=== PATIENT | female | born 1950 | race Native Hawaiian/Other Pacific Islander ===

== ENCOUNTER 2016-09-02 10:07 | Outpatient (CLI) | payer OTHER ==
[~2016-09-02 10:07] MED LIST: ACET5TAB36 PO; ENTERIC COATED325 MG OR; FURO40TA93 PO; GLIP10TA66 PO; POTA20TA4 PO
[2016-09-02 10:30] LABS: PLATELET COUNT 289 K/uL (152-353)
== END 2016-09-02 11:15 | disposition home or self-care (01) ==
LOC: LABW 10:07
PROVIDERS: Internal Medicine
DX: E11.9 Type 2 diabetes mellitus without complications (principal)
CPT/HCPCS: 36415; 80053; 80061; 81000; 82043; 82570; 83036; 84439; 84443; 85027

== ENCOUNTER 2016-09-14 14:24 | Outpatient (CLI) | payer OTHER | END 2016-09-14 16:15 | disposition home or self-care (01) | LOC: MAMMO 14:24 | DX: Z12.31 Encounter for screening mammogram for malignant neoplasm of breast (principal); Z85.3 Personal history of malignant neoplasm of breast | CPT/HCPCS: G0202-TC ==

== ENCOUNTER 2016-10-06 12:44 | Outpatient (CLI) | payer OTHER | END 2016-10-06 14:00 | disposition home or self-care (01) | LOC: MAMMO 12:44 | DX: R92.8 Other abnormal and inconclusive findings on diagnostic imaging of breast (principal) | CPT/HCPCS: G0206-TC ==

== ENCOUNTER 2017-02-26 13:23 | Outpatient (CLI) | payer OTHER ==
[2017-02-26 14:13] LABS: POTASSIUM 3.9 mmol/L (3.6-5.2)
== END 2017-02-26 14:25 | disposition home or self-care (01) ==
LOC: LABW 13:23
PROVIDERS: Internal Medicine
DX: E11.9 Type 2 diabetes mellitus without complications (principal)
CPT/HCPCS: 36415; 80053; 83036

== ENCOUNTER 2017-06-09 10:14 | Outpatient (CLI) | payer OTHER | END 2017-06-09 19:21 | disposition home or self-care (01) | LOC: US 10:14 | DX: R11.0 Nausea (principal) ==

== ENCOUNTER 2017-06-11 09:42 | Outpatient (CLI) | payer OTHER | END 2017-06-11 19:38 | disposition home or self-care (01) | LOC: CT 09:42 | DX: N85.8 Other specified noninflammatory disorders of uterus (principal); D25.9 Leiomyoma of uterus, unspecified | CPT/HCPCS: 36415; 82565; 84520; Q9963 ==

== ENCOUNTER 2017-06-17 12:52 | Outpatient (CLI) | payer OTHER | END 2017-06-17 23:59 | disposition home or self-care (01) | LOC: NM 12:52 | DX: K80.20 Calculus of gallbladder without cholecystitis without obstruction (principal) | CPT/HCPCS: A9537 ==

== ENCOUNTER 2017-12-16 10:23 | Outpatient (CLI) | payer OTHER ==
[2017-12-16 10:49] LABS: PLATELET COUNT 263 K/uL (152-353)
[2017-12-16 11:25] LABS: POTASSIUM 4.1 mmol/L (3.6-5.2)
== END 2017-12-16 19:31 | disposition home or self-care (01) ==
LOC: LABW 10:23
PROVIDERS: Internal Medicine
DX: E11.9 Type 2 diabetes mellitus without complications (principal); Z00.00 Encounter for general adult medical examination without abnormal findings
CPT/HCPCS: 36415; 80053; 80061; 81000; 82043; 82570; 83036; 84439; 84443; 85027

== ENCOUNTER 2018-01-11 07:57 | Outpatient (CLI) | payer OTHER ==
[~2018-01-11] VITALS: Ht 154.9 cm; Wt 129.3 kg
== END 2018-01-11 22:23 | disposition home or self-care (01) ==
LOC: NM 07:57
DX: R07.89 Other chest pain (principal); R06.09 Other forms of dyspnea
CPT/HCPCS: A9500; J2785

== ENCOUNTER 2018-01-12 09:43 | Outpatient (CLI) | payer OTHER | END 2018-01-12 19:37 | disposition home or self-care (01) | LOC: MAMMO 09:43 | DX: N28.1 Cyst of kidney, acquired (principal); Z85.3 Personal history of malignant neoplasm of breast ==

== ENCOUNTER 2018-12-12 10:56 | Outpatient (CLI) | payer OTHER ==
[2018-12-12 11:20] LABS: PLATELET COUNT 294 K/uL (152-353)
[2018-12-12 11:37] LABS: POTASSIUM 4.6 mmol/L (3.6-5.2)
== END 2018-12-12 16:00 | disposition home or self-care (01) ==
LOC: LABW 10:56
PROVIDERS: Physician Assistant
DX: E78.49 Other hyperlipidemia (principal); E66.01 Morbid (severe) obesity due to excess calories; I10 Essential (primary) hypertension; E55.9 Vitamin D deficiency, unspecified; Z79.899 Other long term (current) drug therapy
CPT/HCPCS: 36415; 80053; 80061; 82306; 83036; 84439; 84443; 85027

== ENCOUNTER 2019-02-09 11:18 | Outpatient (CLI) | payer OTHER ==
[2019-02-09 12:23] LABS: PLATELET COUNT 283 K/uL (152-353)
[2019-02-09 12:46] LABS: POTASSIUM 4.4 mmol/L (3.6-5.2)
== END 2019-02-09 19:46 | disposition home or self-care (01) ==
LOC: LABW 11:18
PROVIDERS: Internal Medicine
DX: Z00.00 Encounter for general adult medical examination without abnormal findings (principal); E11.9 Type 2 diabetes mellitus without complications
CPT/HCPCS: 36415; 80053; 80061; 81000; 82043; 82570; 83036; 84439; 84443; 85027

== ENCOUNTER 2019-03-03 12:45 | Outpatient (CLI) | payer OTHER | END 2019-03-03 22:17 | disposition home or self-care (01) | LOC: RAD 12:45 | DX: Z13.820 Encounter for screening for osteoporosis (principal); N95.8 Other specified menopausal and perimenopausal disorders ==

== ENCOUNTER 2019-06-07 11:45 | Emergency (ER) | payer OTHER ==
[~2019-06-07] VITALS: Ht 154.9 cm; Wt 135.2 kg
[2019-06-07 11:57] VITALS: TEMP 98
[2019-06-07] MEDS ORDERED: CLOP75TA2 PO (12:11)
[2019-06-07] MEDS ORDERED: LISI5TAB10 PO (12:11)
[2019-06-07] MEDS ORDERED: GLIP10TA55 PO (12:12)
[2019-06-07] MEDS ORDERED: DOCU100C10 PO (12:12)
[2019-06-07] MEDS ORDERED: METF500T PO (12:12)
[2019-06-07] MEDS ORDERED: LIPITOR10 MG PO (12:12)
[2019-06-07] MEDS ORDERED: EUTHYROX25 MCG PO (12:13)
[2019-06-07] MEDS ORDERED: ASPIRIN 81 LOW81 MG PO (12:13)
[2019-06-07] MEDS ORDERED: AMLODIPINE BESYLATE PO (12:14)
[2019-06-07] MEDS ORDERED: ZOFRAN8 MG PO (12:16)
[2019-06-07 13:05] LABS: PLATELET COUNT 306 K/uL (152-353)
[2019-06-07 13:17] LABS: POTASSIUM 4.3 mmol/L (3.6-5.2)
[2019-06-07 13:58] VITALS: BP 138/94
== END 2019-06-07 13:58 | disposition home or self-care (01) ==
LOC: ED 11:45
PROVIDERS: Emergency Medicine
DX: M79.605 Pain in left leg (principal); Z86.718 Personal history of other venous thrombosis and embolism
CPT/HCPCS: 80053; 85027; 85379; 99283

== ENCOUNTER 2020-02-06 11:43 | Outpatient (CLI) | payer OTHER ==
[~2020-02-06 11:43] MED LIST changes: +AMLODIPINE BESYLATE PO; +ASPIRIN 81 LOW81 MG PO; +CLOP75TA2 PO; +DOCU100C10 PO; +EUTHYROX25 MCG PO; +GLIP10TA55 PO; +LIPITOR10 MG PO; +LISI5TAB10 PO; +METF500T PO; +ZOFRAN8 MG PO
[2020-02-06 12:29] LABS: PLATELET COUNT 277 K/uL (152-353)
[2020-02-06 12:53] LABS: POTASSIUM 4.5 mmol/L (3.6-5.2)
== END 2020-02-06 19:11 | disposition home or self-care (01) ==
LOC: MAMMO 11:43 → LABW 11:43
PROVIDERS: Nurse Practitioner
DX: Z12.31 Encounter for screening mammogram for malignant neoplasm of breast (principal); Z13.820 Encounter for screening for osteoporosis; Z79.899 Other long term (current) drug therapy; Z12.11 Encounter for screening for malignant neoplasm of colon
CPT/HCPCS: 36415; 80053; 80061; 81000; 82043; 82272; 82306; 82570; 84439; 84443; 85027; 87077; 87086; 87088; 87186

== ENCOUNTER 2020-02-23 14:04 | Outpatient (CLI) | payer OTHER | END 2020-02-24 | disposition home or self-care (01) | LOC: LABW 14:04 | DX: N30.90 Cystitis, unspecified without hematuria (principal) | CPT/HCPCS: 81000 ==

== ENCOUNTER 2020-09-17 11:19 | Outpatient (CLI) | payer OTHER ==
[2020-09-17 12:00] LABS: PLATELET COUNT 253 K/uL (152-353)
[2020-09-17 12:58] LABS: POTASSIUM 4.5 mmol/L (3.6-5.2)
== END 2020-09-17 22:06 | disposition home or self-care (01) ==
LOC: LABW 11:19
PROVIDERS: ATTEND Internal Medicine
DX: E11.9 Type 2 diabetes mellitus without complications (principal); E03.8 Other specified hypothyroidism
CPT/HCPCS: 36415; 80053; 80061; 81000; 82043; 82570; 83036; 84439; 84443; 85027

== ENCOUNTER 2020-09-18 22:17 | Emergency (ER) | payer OTHER ==
[~2020-09-18] VITALS: Ht 154.9 cm; Wt 136.1 kg
[2020-09-18 22:50] VITALS: BP 126/59; TEMP 98.5
== END 2020-09-18 22:50 | disposition home or self-care (01) ==
LOC: ED 22:17
DX: R06.09 Other forms of dyspnea (principal)
CPT/HCPCS: 99282

== ENCOUNTER 2021-03-13 13:47 | Outpatient (CLI) | payer OTHER | END 2021-03-13 19:24 | disposition home or self-care (01) | LOC: MAMMO 13:47 | PROVIDERS: ATTEND Internal Medicine | DX: Z12.31 Encounter for screening mammogram for malignant neoplasm of breast (principal); Z85.3 Personal history of malignant neoplasm of breast; Z08 Encounter for follow-up examination after completed treatment for malignant neoplasm ==

== ENCOUNTER 2022-11-20 11:26 | Emergency (ER) | payer OTHER ==
[~2022-11-20] VITALS: Ht 154.9 cm; Wt 136.1 kg
[2022-11-20 11:26] VITALS: TEMP 98.2
[2022-11-20 12:04] LABS: PLATELET COUNT 311 K/uL (152-353)
[2022-11-20 12:07] LABS: POTASSIUM 4.2 mmol/L (3.6-5.2)
[2022-11-20 14:05] VITALS: BP 149/55
== END 2022-11-20 14:23 | disposition home or self-care (01) ==
LOC: ED 11:26
PROVIDERS: Family Medicine
DX: R06.02 Shortness of breath (principal)
CPT/HCPCS: 80053; 82550; 83880; 84484; 85027; 85379; 85610; 85730; 86140; 93005; 94664; 96374; 99284; J1100